=== PATIENT | male | born 1985 | race Caucasian/White ===

== ENCOUNTER 2020-12-11 03:29 | Observation (INO) ==
[2020-12-11] MEDS ORDERED: MoRPHine SULFATE 10 MG/ML CARP/VIAL IV STA (03:42)
[2020-12-11] MEDS ORDERED: SODIUM CHLORIDE 0.9% 1000ML 1,000 ML IV STA (03:42)
[2020-12-11] MEDS ORDERED: ONDANSETRON INJ 2 MG/ML 2 ML VIAL IV STA (03:42)
--- NOTE | 2020-12-11 03:46 | Emergency Department Note ---
History of Present Illness General Chief complaint: Abdominal Pain Stated complaint: ABDOMINAL PAIN Time Seen by Provider: 12/11/20 03:36 History of Present Illness Maximum Pain Intensity: 6 This 35-year-old presents to the ER complaining of epigastric right upper quadrant pain Location: Epigastric right upper quadrant Quality: Painful Severity: Moderate Duration: This evening Timing: Started after eating a cheese steak Context: Pain persisted and patient came in Modifying factors: better with rest; worse with palpation Patient had a few episodes before but nothing severe. This does not feel his reflux. He tried antacids with no relief. Patient denies chest pain, dyspnea, fevers, urinary symptoms. No prior abdominal surgeries. Home Medications Medication Instructions Recorded Confirmed Type pantoprazole 20 mg tablet,delayed 10 mg PO DAILY 05/05/19 12/11/20 History release oxycodone-acetaminophen 5 mg-325 1 tab PO Q8H PRN #10 tab 04/17/20 12/11/20 Rx mg tablet amlodipine 5 mg PO DAILY 12/11/20 12/11/20 History cetirizine [Zyrtec] 10 mg PO DAILY 12/11/20 12/11/20 History hydrochlorothiazide 25 mg PO DAILY 12/11/20 12/11/20 History lansoprazole 30 mg PO DAILY 12/11/20 12/11/20 History Allergies Allergy/AdvReac Type Severity Reaction Status Date / Time No Known Allergies Allergy Unverified 06/30/20 09:45 Past Med/Surg History Medical History (Updated 12/11/20 @ 11:04 by Dariusz Muñiz MD) Encounter for vasectomy GERD (gastroesophageal reflux disease) Hernia High blood pressure Obesity Surgical History (Updated 12/11/20 @ 16:15 by Charu Marsh RN) H/O vasectomy Hx laparoscopic cholecystectomy (12/11/20) Laparoscopic Cholecystectomy Dr. Ely 12/11/2020 Family History Grandfather Hypertension Social History Smoking Status: Never smoker Do You Dip or Chew Tobacco: No; Hx Alcohol Use: Yes Alcohol type: beer Hx Substance Use: No Preferred Language: Qatari Communication Ability: Effective Information Technology Program Manager Required: No Beliefs That Will Affect Care: None marital status: Current Living Situation: Family current occupational status: employed Other Information That Helps Us Care for You: No Feels Safe at Home: Yes Safety Concerns: Feels Safe At This Time Assistive Devices: Walker Review of Systems A total of 10 systems reviewed and were otherwise negative Physical Exam Vital Signs Vital Signs - 24 hr 12/11/20 03:53 12/11/20 03:56 12/11/20 04:31 Pulse Rate 85 84 Pulse Rate from SpO2 Sensor 86 Respiratory Rate 18 25 H Blood Pressure 123/80 167/136 H Blood Pressure Mean 94 146 Pulse Oximetry 97 95 97 Oxygen Delivery Method Room Air Room Air Room Air 12/11/20 04:47 12/11/20 05:00 12/11/20 05:17 Pulse Rate 81 76 72 Pulse Rate from SpO2 Sensor 80 79 70 Respiratory Rate 14 13 12 Blood Pressure 134/99 152/100 H 134/98 Blood Pressure Mean 110 117 110 Pulse Oximetry 96 95 97 Oxygen Delivery Method Room Air Room Air Room Air 12/11/20 05:30 12/11/20 06:00 12/11/20 06:30 Pulse Rate 73 64 64 Pulse Rate from SpO2 Sensor 75 63 64 Respiratory Rate 16 14 16 Blood Pressure 140/92 136/82 142/94 H Blood Pressure Mean 108 100 110 Pulse Oximetry 94 94 99 Oxygen Delivery Method Room Air Room Air Room Air 12/11/20 07:00 Pulse Rate 69 Pulse Rate from SpO2 Sensor 72 Respiratory Rate 18 Blood Pressure 122/97 Blood Pressure Mean 105 Pulse Oximetry 95 Oxygen Delivery Method VITALS: Vitals are noted on the nurse's note and reviewed by myself. Vital signs stable. GENERAL: Pleasant male, in no acute distress, nondiaphoretic, well-developed well-nourished. SKIN: Capillary reflex less than 2 seconds. HEENT: Normocephalic. PERRLA. EOMI. Nares patent. Mucous membranes moist. Neck is supple without nuchal rigidity. HEART: Regular rate and rhythm without murmurs gallops or rubs. LUNGS: Clear to auscultation bilaterally without wheezes, rales or rhonchi. No retractions or accessory muscle use. ABDOMEN: Positive bowel sounds x 4. Normal tympanic percussion. Soft, tender to palpation right upper quadrant, without masses or organomegaly. No CVA tenderness no guarding or rebound tenderness. MUSCULOSKELETAL: No gross musculoskeletal defects. NEURO: Patient was alert and oriented to person place and time. No focal neurological deficits. Course Administered Medications Sodium Chloride (Nss 1000ml) 1,000 mls @ 125 mls/hr IV .Q8H MILDRED Stop: 01/10/21 05:14 Last Admin: 12/12/20 00:25 Dose: 125 mls/hr Documented by: [id number] Infusion: 12/11/20 23:44 Dose: 0 mls/hr Documented by: [id number] Infusion: 12/11/20 23:02 Dose: 125 mls/hr Documented by: [id number] Infusion: 12/11/20 22:29 Dose: 0 mls/hr Documented by: [id number] Admin: 12/11/20 15:10 Dose: 125 mls/hr Documented by: [id number] Infusion: 12/11/20 13:05 Dose: 125 mls/hr Documented by: [id number] Admin: 12/11/20 05:05 Dose: 125 mls/hr Documented by: [id number] Ampicillin Sodium/Sulbactam Sodium 3,000 mg/ Sodium Chloride 108 mls @ 200 mls/hr IV Q6H MILDRED; Protocol Stop: 12/21/20 15:59 Last Infusion: 12/11/20 23:02 Dose: 0 mls/hr Documented by: [id number] Admin: 12/11/20 22:29 Dose: 200 mls/hr Documented by: [id number] Infusion: 12/11/20 17:09 Dose: 0 mls/hr Documented by: [id number] Admin: 12/11/20 16:16 Dose: 200 mls/hr Documented by: [id number] Sodium Chloride (Nss 1000ml) 1,000 mls @ 15 mls/hr IV .Q24H MILDRED Stop: 12/12/20 14:41 Last Admin: 12/11/20 15:57 Dose: Not Given Documented by: [id number] Morphine Sulfate (Morphine Sulfate 4 Mg/Ml 1 Ml Carp\Vial) 4 mg IV Q1H PRN PRN Reason: Pain (6,7,8,9,10) Stop: 12/25/20 14:41 Last Admin: 12/11/20 16:06 Dose: 4 mg Documented by: [id number] Oxycodone/Acetaminophen (Oxycodone/Acetaminophen 5mg/325mg Tab) 1 tab PO Q4H PRN PRN Reason: MODERATE Pain (4,5,6) & Pre PT Stop: 12/25/20 14:41 Last Admin: 12/11/20 22:33 Dose: 1 tab Documented by: [id number] Oxycodone/Acetaminophen (Oxycodone/Acetaminophen 5mg/325mg Tab) 2 tab PO Q4H PRN PRN Reason: SEVERE Pain (7,8,9,10) Stop: 12/25/20 14:41 Last Admin: 12/11/20 17:35 Dose: 2 tab Documented by: [id number] Discontinued Medications Bupivacaine HCl (Bupivacaine 0.25% 30 Ml Vial) Confirm Administered Dose 30 ml .ROUTE .STK-MED ONE Stop: 12/11/20 12:16 Last Admin: 12/11/20 12:47 Dose: 30 ml Documented by: [id number] Cefazolin Sodium (Cefazolin 2,000 Mg/15 Ml Iv Push) Confirm Administered Dose 2,000 mg IV .STK-MED ONE Stop: 12/11/20 12:04 Last Admin: 12/11/20 15:27 Dose: Not Given Documented by: [id number] Epinephrine HCl (Epinephrine Inj 1 Mg/Ml Amp) Confirm Administered Dose 1 mg .ROUTE .STK-MED ONE Stop: 12/11/20 12:16 Last Admin: 12/11/20 12:47 Dose: 0.15 mg Documented by: [id number] Fentanyl Citrate (Fentanyl Citrate 100 Mcg/2 Ml Vial) 100 mcg IV NOW STA Stop: 12/11/20 04:41 Last Admin: 12/11/20 04:43 Dose: 100 mcg Documented by: [id number] Hydromorphone HCl (Hydromorphone Inj 0.5 Mg/0.5 Ml Syr) 0.5 mg IV NOW STA Stop: 12/11/20 04:27 Last Admin: 12/11/20 04:28 Dose: 0.5 mg Documented by: [id number] Sodium Chloride (Nss 1000ml) 1,000 mls @ 999 mls/hr IV .Q1H1M STA Stop: 12/11/20 04:42 Last Infusion: 12/11/20 04:59 Dose: 0 mls/hr Documented by: [id number] Admin: 12/11/20 03:58 Dose: 999 mls/hr Documented by: [id number] Cefazolin Sodium (Ancef 2000mg) 2,000 mg in 15 mls @ 3.75 mls/min IV PREOP MILDRED Stop: 12/11/20 16:00 Last Admin: 12/11/20 12:18 Dose: 3.75 mls/min Documented by: [id number] Morphine Sulfate (Morphine Sulfate 10 Mg/Ml Carp/Vial) 6 mg IV NOW STA Stop: 12/11/20 03:43 Last Admin: 12/11/20 03:50 Dose: 6 mg Documented by: [id number] Ondansetron HCl (Ondansetron Inj 2 Mg/Ml 2 Ml Vial) 4 mg IV NOW STA Stop: 12/11/20 03:43 Last Admin: 12/11/20 03:48 Dose: 4 mg Documented by: [id number] Medical Decision Making Medical Records Attestation: I reviewed the patient's medical records. Home Medications Current Medication List: was personally reviewed by me Laboratory Data Attestation: I reviewed the patient's lab results. Result diagrams: 12/11/20 03:50 12/11/20 03:50 Lab Results 12/11/20 12/11/20 12/11/20 Range/Units 03:50 03:50 03:50 WBC 8.98 (4.8-10.8) K/uL RBC 5.30 (4.7-6.1) M/uL Hgb 14.9 (14.0-18.0) g/dL Hct 42.8 (42-52) % MCV 80.8 (80-100) fL MCH 28.1 (25-34) pg MCHC 34.8 (32-36) g/dL RDW Std Deviation 41.6 (36.4-46.3) fL RDW Coeff of Tj 14.2 (11.5-14.5) % Plt Count 281 (130-400) K/uL MPV 10.3 (7.4-10.4) fL Immature Gran % (Auto) 0.2 % Neut % (Auto) 57.4 % Lymph % (Auto) 28.8 % Walton % (Auto) 9.4 % Eos % (Auto) 3.6 % Baso % (Auto) 0.6 % Neut # (Auto) 5.16 (1.4-6.5) K/uL Lymph # (Auto) 2.59 (1.2-3.4) K/uL Walton # (Auto) 0.84 H (0.11-0.59) K/uL Eos # (Auto) 0.32 (0-0.5) K/uL Baso # (Auto) 0.05 (0-0.2) K/uL Immature Gran # (Auto) 0.02 (0.00-0.02) K/uL Sodium 139 (136-145) mmol/L Potassium 3.5 (3.5-5.1) mmol/L Chloride 104 (98-107) mmol/L Carbon Dioxide 31 (21-32) mmol/L Anion Gap 4.0 (3-11) BUN 20 H (7-18) mg/dl Creatinine 0.99 (0.6-1.4) mg/dl Est Cr Clr Drug Dosing 134.9 ml/min Est GFR ( Amer) 113.9 ml/min Est GFR (Non-Af Amer) 98.3 ml/min BUN/Creatinine Ratio 20.0 (10-20) Glucose 103 H (70-99) mg/dl Calcium 9.1 (8.5-10.1) mg/dl Total Bilirubin 0.5 (0.2-1) mg/dl AST 13 L (15-37) U/L ALT 38 (12-78) U/L Alkaline Phosphatase 103 (45-117) U/L Total Protein 7.9 (6.4-8.2) gm/dl Albumin 3.7 (3.4-5.0) gm/dl Globulin 4.2 H (2.5-4.0) gm/dl Albumin/Globulin Ratio 0.9 (0.9-2) Lipase 111 (73-393) U/L Urine Color Yellow Urine Appearance Clear (Clear) Urine pH 5.5 (4.5-7.5) Ur Specific [place] 1.014 (1.000-1.030) Urine Protein Negative (Negative) Urine Glucose (UA) Negative (Negative) Urine Ketones Negative (Negative) Urine Blood Trace H (Negative) Urine Nitrite Negative (Negative) Urine Bilirubin Negative (Negative) Urine Urobilinogen Negative (Negative) Ur Leukocyte Esterase Negative (Negative) Urine WBC (Auto) 0 (0-5) /hpf Urine RBC (Auto) 0-4 (0-4) /hpf U Hyaline Cast (Auto) 0 (0-5) /lpf U Epithel Cells (Auto) 0-5 (0-5) /lpf Urine Bacteria (Auto) Negative (Negative) COVID-19 Eval Order SARS-CoV-2 (PCR) (Negative) 12/11/20 12/11/20 Range/Units 05:05 05:05 WBC (4.8-10.8) K/uL RBC (4.7-6.1) M/uL Hgb (14.0-18.0) g/dL Hct (42-52) % MCV (80-100) fL MCH (25-34) pg MCHC (32-36) g/dL RDW Std Deviation (36.4-46.3) fL RDW Coeff of Tj (11.5-14.5) % Plt Count (130-400) K/uL MPV (7.4-10.4) fL Immature Gran % (Auto) % Neut % (Auto) % Lymph % (Auto) % Walton % (Auto) % Eos % (Auto) % Baso % (Auto) % Neut # (Auto) (1.4-6.5) K/uL Lymph # (Auto) (1.2-3.4) K/uL [place] # (Auto) (0.11-0.59) K/uL Eos # (Auto) (0-0.5) K/uL Baso # (Auto) (0-0.2) K/uL Immature Gran # (Auto) (0.00-0.02) K/uL Sodium (136-145) mmol/L Potassium (3.5-5.1) mmol/L Chloride (98-107) mmol/L Carbon Dioxide (21-32) mmol/L Anion Gap (3-11) BUN (7-18) mg/dl Creatinine (0.6-1.4) mg/dl Est Cr Clr Drug Dosing ml/min Est GFR ( Amer) ml/min Est GFR (Non-Af Amer) ml/min BUN/Creatinine Ratio (10-20) Glucose (70-99) mg/dl Calcium (8.5-10.1) mg/dl Total Bilirubin (0.2-1) mg/dl AST (15-37) U/L ALT (12-78) U/L Alkaline Phosphatase (45-117) U/L Total Protein (6.4-8.2) gm/dl Albumin (3.4-5.0) gm/dl Globulin (2.5-4.0) gm/dl Albumin/Globulin Ratio (0.9-2) Lipase (73-393) U/L Urine Color Urine Appearance (Clear) Urine pH (4.5-7.5) Ur Specific [place] (1.000-1.030) Urine Protein (Negative) Urine Glucose (UA) (Negative) Urine Ketones (Negative) Urine Blood (Negative) Urine Nitrite (Negative) Urine Bilirubin (Negative) Urine Urobilinogen (Negative) Ur Leukocyte Esterase (Negative) Urine WBC (Auto) (0-5) /hpf Urine RBC (Auto) (0-4) /hpf U Hyaline Cast (Auto) (0-5) /lpf U Epithel Cells (Auto) (0-5) /lpf Urine Bacteria (Auto) (Negative) COVID-19 Eval Order Covid19 at [facility] SARS-CoV-2 (PCR) NEGATIVE (Negative) Imaging Data Attestation: I personally reviewed and interpreted this imaging study as follows: MDM Narrative Prior records/ancillary studies reviewed. Triage Nursing notes reviewed. Additional history obtained from family. The patient's history was concerning for abdominal pain. Differential diagnosis: Etiologies such as appendicitis, diverticulitis, PUD, biliary pathology, UTI, pancreatitis, obstruction, mesenteric ischemia, aortic pathology, infections, inflammatory bowel disease, renal colic, as well as others were entertained. Physical examination findings: As above. ER treatment provided: An order was placed for continuous cardiac monitoring. The monitor shows a rate of 60-100 with a sinus rhythm. IV fluids, morphine, Zofran, Dilaudid, fentanyl On reassessment the patient felt better. Diagnostics interpreted by me: The labs revealed no worrisome leukocytosis, normal LFTs. Normal lipase. Negative urine Imaging studies: US GALLBLADDER: 1.5 cm shadowing gallstone. No gallbladder wall thickening or pericholecystic fluid. No sonographic Braun's sign elicited. 3 mm echogenic focus along the anterior gallbladder wall which could be adenomyomatosis. No biliary dilatation. The common bile duct measures 4 mm. Liver unremarkable. Visualized pancreas unremarkable. Right kidney unremarkable. No renal calculus or hydronephrosis. Radiologist: José Ramos M.D. Consultation: A consultation was placed with surgery, Dr. Rajesh Ely. The case was discussed and diagnostics were reviewed. The patient will be evaluated for further evaluation and treatment. Exam and history seem consistent with biliary colic. Patient's pain persisted. I spoke to surgery. He will evaluate the patient. By the evaluation outlined above emergent etiologies such as appendicitis, diverticulitis, PUD, UTI, pancreatitis, obstruction, mesenteric ischemia, aortic pathology, inflammatory bowel disease, renal colic, as well as others were deemed relatively unlikely. The pt informed about the findings as listed above. All questions were answered and pleased with the treatment. the chart was completed utilizing [employer] Speech voice recognition software. Grammatical errors, random word insertions, pronoun errors, and incomplete sentences are an occassional consequence of this system due to software limitations, ambient noise, and hardware issues. Any formal questions or concerns about the content, text, or information contained within the body of this dictation should be directly addressed to the physician learning and development assistant for clarification. Impression & Plan Gallstones, Biliary colic Discharge Plan Visit Data Chief Complaint: Abdominal Pain Stated Complaint: ABDOMINAL PAIN ED Provider: Juliana Argueta ED Midlevel Provider: Yanely May Discharge Problem: Gallstones, Biliary colic Patient Disposition: Being Evaluated by Surgeon Condition: Good Discharge Instructions Interventions: ED Discharge Assessment Last Done: 12/11/20 10:11
[2020-12-11 03:59] LABS: Basophils # (auto) 0.05 K/uL (0-0.2); Basophils % (auto) 0.6 %; Eosinophils # (auto) 0.32 K/uL (0-0.5); Eosinophils % (auto) 3.6 %; Hematocrit (blood only) 42.8 % (42-52); Hemoglobin 14.9 g/dL (14.0-18.0); Immature Granulocytes # (auto) 0.02 K/uL (0.00-0.02); Immature Granulocytes % (auto) 0.2 %; Lymphocytes # (auto) 2.59 K/uL (1.2-3.4); Lymphocytes % (auto) 28.8 %; Mean Corpuscular Hemoglobin 28.1 pg (25-34); Mean Corpuscular Hgb Conc 34.8 g/dL (32-36); Mean Corpuscular Volume 80.8 fL (80-100); Mean Platelet Volume 10.3 fL (7.4-10.4); Monocytes # (auto) 0.84 K/uL (0.11-0.59); Monocytes % (auto) 9.4 %; Neutrophils # (auto) 5.16 K/uL (1.4-6.5); Neutrophils % (auto) 57.4 %; Platelet Count 281 K/uL (130-400); RDW Coefficient of Variation 14.2 % (11.5-14.5); RDW Standard Deviation 41.6 fL (36.4-46.3); White Blood Count 8.98 K/uL (4.8-10.8)
[2020-12-11 04:05] LABS: Appearance Urine Clear (Clear); Bacteria Urine Automated Negative (Negative); Bilirubin Urine Negative (Negative); Blood Urine Trace (Negative); Cast Urine Automated 0 /lpf (0-5); Color Urine Yellow; Epithelial Cell Urine Auto 0-5 /lpf (0-5); Glucose Urine UA Negative (Negative); Ketones Urine Negative (Negative); Leukocyte Esterase Urine Negative (Negative); Nitrite Urine Negative (Negative); Protein Urine Negative (Negative); RBC Urine Automated 0-4 /hpf (0-4); Specific Gravity Urine 1.014 (1.000-1.030); Urobilinogen Urine Negative (Negative); WBC Urine Automated 0 /hpf (0-5); pH Urine 5.5 (4.5-7.5)
[2020-12-11 04:26] LABS: Albumin Level 3.7 gm/dl (3.4-5.0); Calcium 9.1 mg/dl (8.5-10.1); Creatinine Clr Calc Pharmacy 134.9 ml/min; Est GFR (African American) 113.9 ml/min; Est GFR (Non-African American) 98.3 ml/min; Potassium 3.5 mmol/L (3.5-5.1)
[2020-12-11] MEDS ORDERED: HYDROmorphone INJ 0.5 MG/0.5 ML SYR IV STA (04:26)
[2020-12-11 04:28] LABS: Albumin Globulin Ratio 0.9 (0.9-2); Bilirubin,Total 0.5 mg/dl (0.2-1); Globulin 4.2 gm/dl (2.5-4.0); Total Protein 7.9 gm/dl (6.4-8.2)
[2020-12-11] MEDS ORDERED: fentaNYL citrate 100 MCG/2 ML VIAL IV STA (04:40)
[2020-12-11] MEDS: SODIUM CHLORIDE 0.9% 1000ML 1,000 ML IV SCH ×2 (05:05→15:10)
[2020-12-11] MEDS ORDERED: fentaNYL citrate 100 MCG/2 ML VIAL IV PRN ×2 (05:25→10:29)
--- NOTE | 2020-12-11 07:01 | Ultrasound Report ---
BILIARY ULTRASOUND CLINICAL HISTORY: Right upper quadrant abdominal pain COMPARISON STUDY: No previous studies for comparison. FINDINGS: The pancreas appeared normal as visualized. No focal hepatic masses were visualized. There is a shadowing gallbladder calculus. There is no gallbladder wall thickening and no evidence of pericholecystic fluid. There is equivocal adenomyomatosis. There is no ductal dilatation. The common bile duct measured 4 mm. There is no right-sided hydronephrosis. IMPRESSION: 1. Cholelithiasis. No evidence of ductal dilatation. ACT 112: Negative or not required by law. Electronically signed by: Sly Hudson M.D. 12/11/2020 6:59 AM
--- NOTE | 2020-12-11 07:09 | History & Physical Report ---
Date of Service December 11, 2020 Assessment & Plan (1) Acute cholecystitis: -US results reviewed -His pain has been persistent with minimal improvement overnight in ER -Will admit patient to surgical service -NPO/IVF -IV ABX -Will take to OR for laparoscopic cholecystectomy, possible open, possible IOC -Consent obtained, risks discussed including bleeding, infection, bile leak, ductal injury History of Present Illness Chief Complaint: Abdominal pain Primary Care Provider: NO PCP This is a 35 yo male who presents to the ER with about 12 hours of sharp epigastric and RUQ pain radiating to the back. He states he has had this pain in the past but never this severe and never lasted this long. No icterus. No acholic stools or tea colored urine. No abdominal surgeries. Allergies Allergy/AdvReac Type Severity Reaction Status Date / Time No Known Allergies Allergy Unverified 06/30/20 09:45 Home Medications Medication Instructions Recorded Confirmed Type pantoprazole 20 mg tablet,delayed 20 mg PO DAILY 05/05/19 06/30/20 History release oxycodone-acetaminophen 5 mg-325 1 tab PO Q8H PRN #10 tab 04/17/20 06/30/20 Rx mg tablet Past Med/Surg History Medical History Encounter for vasectomy Hernia High blood pressure Surgical History H/O vasectomy Family History Grandfather Hypertension Social History Smoking Status: Never smoker Hx Alcohol Use: Yes marital status: current occupational status: employed Feels Safe at Home: Yes Review of Systems Review of Systems: All systems reviewed & are unremarkable except as noted in Subjective Physical Exam Constitutional: WD/WN, vitals as above Eyes: PERRL, conjunctivae normal, anicteric sclerae ENMT: external ear and nose normal, oropharynx normal Neck: trachea midline, no thyromegaly Respiratory: normal respiratory effort, lungs clear to auscultation Cardiovascular: RRR, no murmur, no edema Gastrointestinal (Abdomen): Inspection/Auscultation: abdomen normal to inspection; abdomen not distended Percussion/Palpation: + abdomen tender (RUQ/Epigastrum) and abdomen soft; no guarding and no hernia Musculoskeletal: no cyanosis or clubbing, extremities motor strength 5/5 Skin: no rashes, warm and dry Neurologic: PERRL, EOMI, accommodation nl, no face palsy, no dysarthria Psychiatric: A+Ox3, euthymic affect Results & Data Results & Data ([facility]) Vital Signs (Past 12 Hours) Vital Signs Temp Pulse Resp BP Pulse Ox 12/11/20 06:30 64 16 142/94 H 99 12/11/20 06:00 64 14 136/82 94 12/11/20 05:30 73 16 140/92 94 12/11/20 05:17 72 12 134/98 97 12/11/20 05:00 76 13 152/100 H 95 12/11/20 04:47 81 14 134/99 96 12/11/20 04:31 84 25 H 167/136 H 97 12/11/20 03:56 95 12/11/20 03:53 85 18 123/80 97 12/11/20 03:33 36.4 C L 85 16 137/93 97 BILIARY ULTRASOUND CLINICAL HISTORY: Right upper quadrant abdominal pain COMPARISON STUDY: No previous studies for comparison. FINDINGS: The pancreas appeared normal as visualized. No focal hepatic masses were visualized. There is a shadowing gallbladder calculus. There is no gallbladder wall thickening and no evidence of pericholecystic fluid. There is equivocal adenomyomatosis. There is no ductal dilatation. The common bile duct measured 4 mm. There is no right-sided hydronephrosis. IMPRESSION: 1. Cholelithiasis. No evidence of ductal dilatation. PG Care Time/CCT Total # of Minutes Spent Total Time Spent with Patient: Total time spent is greater than 50% in coordination of care (as documented) at patient's floor/unit and/or counseling patient: Coding Level of Care Code 87222 OBS Care - Level 3 Diagnoses Acute cholecystitis K81.0
[2020-12-11] MEDS ORDERED: LABETALOL HCL IV 5 MG/ML 20ML IV PRN (10:29)
[2020-12-11] MEDS ORDERED: ATROPINE SULFATE 0.1 MG/ML 10ML SYR IV PRN (10:29)
[2020-12-11] MEDS ORDERED: HYDROmorphone INJ 1 MG/ML SYRINGE IV PRN (10:29)
[2020-12-11] MEDS ORDERED: PHENYLEPHRINE 100MCG/ML 5ML SYR IV PRN (10:29)
[2020-12-11] MEDS ORDERED: ePHEDrine sulfate 50 MG/ML AMP IV PRN (10:29)
[2020-12-11] MEDS ORDERED: MEPERIDINE HCL 25 MG/ML CARP/VIAL IV PRN (10:29)
[2020-12-11] MEDS ORDERED: ONDANSETRON INJ 2 MG/ML 2 ML VIAL IV PRN ×3 (10:29→14:42)
[2020-12-11] MEDS ORDERED: ROCURONIUM BROMIDE 10 MG/ML 5 ML VIAL IV ONE (10:51)
[2020-12-11] MEDS ORDERED: PROPOFOL IV EMULSION 10 MG/ML 20 ML VIAL IV ONE (10:51)
[2020-12-11] MEDS ORDERED: fentaNYL citrate 100 MCG/2 ML VIAL ONE ×2 (10:51→13:05)
[2020-12-11] MEDS ORDERED: MIDAZOLAM HCL 1 MG/ML 2ML VIAL ONE (10:51)
[2020-12-11] MEDS ORDERED: LIDOCAINE 2% 2 ML VIAL/AMP(20MG/ML) INFIL ONE (10:51)
--- NOTE | 2020-12-11 11:04 | Anesthesiology Consultation ---
Date of Service December 11, 2020 Assessment & Plan (1) Encounter for pre-operative examination: Chart Review Chart Review: Acceptable Risk for Surgery and Patient NOT seen in Pre Admission Testing Consults Requested none History Surgery Operation Date: 12/11/20 08:20 Proposed Procedures p Laparoscopic Cholecystectomy Possible Cholangiogram - Rajesh Ely DO Height/Weight Height: 6 ft 1 in Weight: 109.1 kg Allergies Allergy/AdvReac Type Severity Reaction Status Date / Time No Known Allergies Allergy Unverified 06/30/20 09:45 Medications Home Medications Medication Instructions Recorded Confirmed Last Taken pantoprazole 20 mg tablet,delayed 20 mg PO DAILY 05/05/19 06/30/20 Unknown release oxycodone-acetaminophen 5 mg-325 1 tab PO Q8H PRN #10 tab 04/17/20 06/30/20 Unknown mg tablet amlodipine 5 mg PO DAILY 12/11/20 12/11/20 12/10/20 06:00 cetirizine [Zyrtec] 10 mg PO DAILY 12/11/20 12/11/20 12/10/20 06:00 hydrochlorothiazide 25 mg PO DAILY 12/11/20 12/11/20 12/10/20 06:00 lansoprazole 30 mg PO DAILY 12/11/20 12/11/20 12/10/20 06:00 Active Medications Generic Name Dose Route Start Last Admin Trade Name Freq PRN Reason Stop Dose Admin Sodium Chloride 1,000 mls @ 125 mls/hr 12/11/20 05:15 12/11/20 05:05 Nss 1000ml IV 01/10/21 05:14 125 mls/hr .Q8H MILDRED Administration NPO Date Last Intake of Fluids: 12/11/20 Time Last Intake of Fluids: 01:00 Date Last Intake of Solids: 12/10/20 Time Last Intake of Solids: 18:00 Past Medical History Medical History Encounter for vasectomy GERD (gastroesophageal reflux disease) Hernia High blood pressure Obesity Past Family History Family History Grandfather Hypertension Past Surgical History Surgical History H/O vasectomy Social History Smoking Status: Never smoker Hx Alcohol Use: Yes Physical Exam Vital Signs Last Vital Signs Temp 36.7 C 12/11/20 10:14 Pulse 60 12/11/20 10:14 Resp 16 12/11/20 10:14 BP 132/94 12/11/20 10:14 Pulse Ox 99 12/11/20 10:14 Testing Laboratory Results 12/11/20 03:50 12/11/20 03:50 Urine Color Yellow 12/11/20 03:50 Urine Appearance Clear (Clear) 12/11/20 03:50 Urine pH 5.5 (4.5-7.5) 12/11/20 03:50 Ur Specific [place] 1.014 (1.000-1.030) 12/11/20 03:50 Urine Protein Negative (Negative) 12/11/20 03:50 Urine Glucose (UA) Negative (Negative) 12/11/20 03:50 Urine Ketones Negative (Negative) 12/11/20 03:50 Urine Nitrite Negative (Negative) 12/11/20 03:50 Ur Leukocyte Esterase Negative (Negative) 12/11/20 03:50 Urine WBC (Auto) 0 /hpf (0-5) 12/11/20 03:50 Urine RBC (Auto) 0-4 /hpf (0-4) 12/11/20 03:50 U Hyaline Cast (Auto) 0 /lpf (0-5) 12/11/20 03:50 U Epithel Cells (Auto) 0-5 /lpf (0-5) 12/11/20 03:50 Urine Bacteria (Auto) Negative (Negative) 12/11/20 03:50
[2020-12-11] MEDS ORDERED: ceFAZolin 2000MG 2,000 MG/15 ML SYR IV SCH (12:00)
[2020-12-11] MEDS ORDERED: ceFAZolin 2,000 MG/15 ML IV PUSH IV ONE (12:03)
[2020-12-11] MEDS ORDERED: EPINEPHrine INJ 1 MG/ML AMP ONE (12:15)
[2020-12-11] MEDS ORDERED: BUPIVACAINE 0.25% 30 ML VIAL ONE (12:15)
--- NOTE | 2020-12-11 13:36 | Post Operative Brief Note ---
PG Immediate Post Op with CF Date of Surgery December 11, 2020 Pre & Post Diagnosis Operation Date: 12/11/20 08:20 Pre-Op Diagnosis: Acute cholecystitis Post-Op Diagnosis: Acute cholecystitis I identified the patient and participated in the time-out.: Yes Procedure Operation Date: 12/11/20 08:20 Actual Procedures p Laparoscopic Cholecystectomy(Not Applicable) - Rajesh Ely DO Surgeon Rajesh Ely DO Director Of Analytics Paulo Daniel PA-C Estimated Blood Loss 5 Findings See Below Acutely inflamed, edematous gallbladder Specimens Specimen Description: Permanent Solution: A.) Gallbladder and Contents Anesthesia Type General Complications none Disposition Disposition: Recovery Room
--- NOTE | 2020-12-11 13:41 | Operative Report ---
PG Post Operative Report Pre & Post Diagnosis Operation Date: 12/11/20 08:20 Pre-Op Diagnosis: Acute cholecystitis Post-Op Diagnosis: Acute cholecystitis I identified the patient and participated in the time-out.: Yes Procedure Operation Date: 12/11/20 08:20 Actual Procedures p Laparoscopic Cholecystectomy(Not Applicable) - Rajesh Ely DO Surgeon Rajesh Ely DO Balance Wheel Hand Filer Paulo Daniel PA-C Estimated Blood Loss 5 Findings See Below Acutely inflamed, edematous gallbladder Fluids see anesthesia record Specimens Gallbladder to pathology Drains None Anesthesia Type General Complications none Disposition Disposition: Recovery Room Indications 35 yo male with acute cholecystitis Description of Procedure The patient was brought to the operating room and placed in the supine position with both arms extended. At this time he underwent general endotracheal anesthesia without any problems. He was given appropriate pre-operative antibiotics. His abdomen was prepped and draped in the usual sterile fashion. A timeout was called, the procedure was verified as Laparoscopic cholecystectomy, possible open, possible intra-operative cholangiogram. Surgical, nursing and anesthesia teams agreed and the procedure was begun. After injection of 0.25% Marcaine with epinephrine, a supraumbilical vertical incision was made and carried down to the fascia using S-retractors. The abdominal wall was then elevated with towel clamps and abdomen entered using the Veress needle confirming position using the saline drop test. Pneumoperitoneum was established. 5mm trocar was placed. Laparoscope was introduced. No injury from entry into the abdomen was visualized after inspection of the abdomen. Three further ports were placed under direct visualization. One 11mm in the subxiphoid region and two 5mm in the RUQ. At this time the abdomen was i nspected and the gallbladder identified. The gallbladder was inflamed and edematous. The gallbladder fundus was grasped and retracted cephalad. The gallbladder infundibulum was then grasped and retracted laterally. The cystic duct and cystic artery were then identified and skeletonized. The critical view of safety was obtained. They were both then clipped twice proximally and once distally and then divided using scissors. The gallbladder was then taken off of the liver bed using electrocautery and placed in an endocatch bag and removed from the subxiphoid port. The liver bed was then inspected and no bile leak or bleeding was evident. The subxiphoid port was then closed using 0-Vicryl using the suture passer. The trocars were then removed under direct visualization and no bleeding was present. Abdomen was desufflated. The skin was then closed using 4-0 Monocryl in a subcuticular fashion. Surgical glue was applied. Needle and sponge counts were correct x 2. At this time the patient was awoken from anesthesia and extubated having remained stable throughout the entire case. The patient was then transported to PACU in stable condition. The physician psych assistant was present and scrubbed throughout the entire case. He was essential in positioning, prepping and draping the patient, retraction and exposure, driving the laparoscope, closure of the incisions, and placement of the dressings. I attest to the content of the Intraoperative Record and any orders documented therein. Any exceptions are noted below.
[2020-12-11] MEDS ORDERED: DEXAMETHASONE SOD INJ 4 MG/ML VIAL ONE (13:53)
[2020-12-11] MEDS ORDERED: NEOSTIGMINE METHYLSULFATE 1 MG/ML 10ML VIAL ONE (13:53)
[2020-12-11] MEDS ORDERED: ONDANSETRON INJ 2 MG/ML 2 ML VIAL ONE (13:53)
[2020-12-11] MEDS ORDERED: KETOROLAC 30 MG/ML VIAL ONE ×2 (13:53→13:54)
[2020-12-11] MEDS ORDERED: GLYCOPYRROLATE 0.2 MG/ML VIAL ONE (13:53)
--- NOTE | 2020-12-11 14:40 | Anesthesiology Progress Note ---
Date of Service December 11, 2020 Anesthesia Post Procedure Vital Signs Vital Signs: Temp Pulse Pulse Pulse Resp BP BP 12/11/20 14:15 37 C 73 20 123/84 12/11/20 14:07 36.8 C 72 20 121/80 12/11/20 14:00 71 18 124/80 12/11/20 13:55 36.6 C 70 16 116/76 12/11/20 13:46 36.6 C 76 16 132/88 12/11/20 10:14 36.7 C 60 16 132/94 12/11/20 10:00 65 20 126/89 12/11/20 09:30 57 L 18 121/86 12/11/20 09:00 58 L 18 133/87 12/11/20 08:30 63 18 132/90 12/11/20 08:00 62 18 131/91 12/11/20 07:30 62 18 124/95 12/11/20 07:00 69 18 122/97 12/11/20 06:30 64 16 142/94 H 12/11/20 06:00 64 14 136/82 12/11/20 05:30 73 16 140/92 12/11/20 05:17 72 12 134/98 12/11/20 05:00 76 13 152/100 H 12/11/20 04:47 81 14 134/99 12/11/20 04:31 84 25 H 167/136 H 12/11/20 03:56 12/11/20 03:53 85 18 123/80 12/11/20 03:33 36.4 C L 85 16 137/93 Pulse Ox 12/11/20 14:15 97 12/11/20 14:07 99 12/11/20 14:00 96 12/11/20 13:55 99 12/11/20 13:46 97 12/11/20 10:14 99 12/11/20 10:00 95 12/11/20 09:30 97 12/11/20 09:00 96 12/11/20 08:30 96 12/11/20 08:00 93 12/11/20 07:30 96 12/11/20 07:00 95 12/11/20 06:30 99 12/11/20 06:00 94 12/11/20 05:30 94 12/11/20 05:17 97 12/11/20 05:00 95 12/11/20 04:47 96 12/11/20 04:31 97 12/11/20 03:56 95 12/11/20 03:53 97 12/11/20 03:33 97 Pain Intensity Upper Abdomen: Pain Intensity: 2 Transfer of Care Handoff Completed per policy Notes Mental Status: alert / awake / arousable Patient Amnestic to Procedure: Yes Nausea / Vomiting: adequately controlled Pain: adequately controlled Airway Patency, RR, SpO2: stable & adequate BP & HR: stable & adequate Hydration State: stable & adequate Anesthetic Complications: no major complications apparent and Pt Satisfied with anesthetic care
[2020-12-11] MEDS ORDERED: SODIUM CHLORIDE 0.9% 1000ML 1,000 ML IV SCH (14:42)
[2020-12-11] MEDS ORDERED: oxyCODONE/ACETAMINOPHEN 5mg/325mg TAB PO PRN ×2 (14:42)
[2020-12-11] MEDS ORDERED: MoRPHine SULFATE 2 MG/ML CARP IV PRN ×2 (14:42)
[2020-12-11] MEDS ORDERED: MoRPHine SULFATE 4 MG/ML 1 ML CARP\\VIAL IV PRN ×2 (14:42)
[2020-12-11] MEDS: AMPICILLIN/SULBACTAM SOD 3,000 MG in 0.9 % SODIUM CHLORIDE 100 ML IV SCH ×2 (16:16→22:29)
[2020-12-12] MEDS: SODIUM CHLORIDE 0.9% 1000ML 1,000 ML IV SCH ×2 (00:25→06:16)
[2020-12-12] MEDS: AMPICILLIN/SULBACTAM SOD 3,000 MG in 0.9 % SODIUM CHLORIDE 100 ML IV SCH (04:01)
--- NOTE | 2020-12-12 07:48 | Surgery Progress Note ---
Date of Service December 12, 2020 Assessment & Plan (1) Acute cholecystitis: POD 1 jennifer yi adams for d/c Admission and Anticipated Discharge Date Admission Date: December 11, 2020 Subjective some soreness subxiphoid incision, tolerating diet Physical Exam Gastrointestinal (Abdomen): Inspection/Auscultation: + abdominal surgical incision (dry dressing) Percussion/Palpation: abdomen soft Results & Data ([facility]) Vital Signs (Past 12 Hours) Vital Signs Temp Pulse Resp BP BP Pulse Ox 12/12/20 07:40 36.7 C 60 16 112/71 148/90 H 93 12/12/20 03:44 36.6 C 85 16 118/76 91 12/11/20 22:31 36.9 C 88 16 123/75 93 PG Care Time/CCT Total # of Minutes Spent Total Time Spent with Patient: Total time spent is greater than 50% in coordination of care (as documented) at patient's floor/unit and/or counseling patient: Coding Level of Care Code None Diagnoses Acute cholecystitis K81.0
--- NOTE | 2020-12-12 08:50 | Discharge Summary ---
Date of Service December 12, 2020 Admission HPI Per Admitting Provider This is a 35 yo male who presents to the ER with about 12 hours of sharp epigastric and RUQ pain radiating to the back. He states he has had this pain in the past but never this severe and never lasted this long. No icterus. No acholic stools or tea colored urine. No abdominal surgeries. Principal Diagnosis Acute cholecystitis Discharge Exam Constitutional WD/WN, vitals as above Gastrointestinal (Abdomen) Inspection/Auscultation: + abdominal surgical incision (clean, dry) Percussion/Palpation: abdomen soft Discharge Data Allergies Allergy/AdvReac Type Severity Reaction Status Date / Time No Known Allergies Allergy Unverified 06/30/20 09:45 Consultations 12/11/20 06:55 ED Decision to Admit Stat Procedures Performed Operation Date: 12/11/20 08:20 Actual Procedures p Laparoscopic Cholecystectomy(Not Applicable) - Rajesh Ely DO Ordered Studies 12/11/20 03:42 gallbladder Urgent Hospital Course (1) Acute cholecystitis: 35 y/o male presented to the ER with RUQ abdominal pain with ultrasound showing cholelithiasis. He continued to require IV analgesics overnight and was taken to the operating room in the morning for laparoscopic cholecystectomy. He was transferred to the surgical floor for overnight observation. In the morning he was tolerating diet and oral analgesics. He was stable for discharge home. Total Time Total Time Spent Total Time Spent (In Minutes): 15 Discharge Plan Discharge Items Patient Disposition: Home - Self-Care Reason For Visit: CHOLECYSTITIS Discharge Diagnosis: laparoscopic cholecystectomy Condition on Discharge: Good Activity: As commented below Lifting: No more than 10 pounds Bathing Comment: ok to shower, remove outer bandage tonight or tomorrow Driving/Machine Use: Resume 3 days after discharge Non-emergency contact: Surgeon Call non-emergency contact if: you have any medication questions, your pain is not controlled, you have a fever, your temperature is above 101.5 and your wound has increased redness Follow-up/Referrals: Rajesh Ely DO [Physician] - (Call the office to schedule an appt in 1-2 weeks) PCP,NO [Primary Care Provider] - Diet: Regular Addtl Attending Provider Instructions: Pending Studies at Discharge: No Stand-Alone Forms: My [facility], Work/School Release Medications and DC Order Prescriptions: New oxycodone-acetaminophen [Percocet] 5-325 mg tablet 1 - 2 tab PO Q4H PRN (Reason: pain, initial therapy, max 6 daily) Qty: 15 RF: 0 Continued oxycodone-acetaminophen 5-325 mg tablet 1 tab PO Q8H PRN (Reason: pain) Qty: 10 RF: 0 pantoprazole 20 mg tablet,delayed release (DR/EC) 10 mg PO DAILY RF: 0 hydrochlorothiazide 25 mg tablet 25 mg PO DAILY RF: 0 lansoprazole 30 mg capsule,delayed release(DR/EC) 30 mg PO DAILY RF: 0 amlodipine 5 mg tablet 5 mg PO DAILY RF: 0 cetirizine [Zyrtec] 10 mg Tablet 10 mg PO DAILY RF: 0 Discharge Orders: Discharge Order (Routine); Ordered 12/11/20 Ordered By: Db Torres/Other Patient Handouts: Cholecystectomy Admission Data Admit Date/Time: 12/11/20 07:23 Attending Provider: Rajesh Ely Admit Provider: Rajesh Ely Primary Care Provider: PCP,NO Other Providers: Rajesh Ely Other Interventions: Discharge Summary Assessment (RN) Last Done: 12/12/20 07:55 Coding Level of Care Code D/C DAY MANAGEMENT <30 MINS Diagnoses Acute cholecystitis K81.0
== END 2020-12-12 09:05 | disposition home or self-care (01) ==
LOC: ED 03:29 → 3E 10:18 → OR 10:18